=== PATIENT | female | born 1965 | race Caucasian/White ===

== ENCOUNTER 2020-10-12 16:18 | Emergency (ER) | payer OTHER ==
[2020-10-12 16:25] VITALS: BP 140/80; PULSE 90; RESP 18; TEMP 98.1
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
== END 2020-10-12 16:58 | disposition home or self-care (01) ==
LOC: EC 16:18
DX: Z48.02 Encounter for removal of sutures (principal)
CPT/HCPCS: 99282

== ENCOUNTER → 2021-02-03 | Outpatient (CLI) | payer OTHER ==
--- NOTE | 2021-02-03 14:38 | XR ---
EXAMINATION TYPE: XR clavicle LT DATE OF EXAM: 02/03/2021 COMPARISON: NONE HISTORY: Pain TECHNIQUE: 2 views submitted FINDINGS: Postsurgical change involving the left clavicle. Neuropathy of the AC joint. Diffuse osteop enia. IMPRESSION: Postoperative change. Orthopedic plate along the upper margin of the clavicle may extend to the epidermal line are outside the epidermis correlate clinically.
--- NOTE | 2021-02-03 14:39 | XR ---
EXAMINATION TYPE: XR shoulder complete LT DATE OF EXAM: 02/03/2021 COMPARISON: NONE HISTORY: Pain TECHNIQUE: Three views are submitted. FINDINGS: Postsurgical changes involving the clavicle with a metallic plate and several screws. Upper margin of the plate extends along the upper margin of the clavicle may extend to the epidermal line. Correlate clinically. IMPRESSION: 1. Postsurgical change.
== END | disposition home or self-care (01) ==
LOC: RADXRYALE 14:15
PROVIDERS: ATTEND Family Medicine
DX: M25.512 Pain in left shoulder (principal)

== ENCOUNTER → 2021-03-27 | Outpatient (CLI) | payer OTHER ==
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
== END | disposition home or self-care (01) ==
LOC: RADMRIMAIN 11:39
PROVIDERS: ATTEND Orthopaedic Surgery
DX: M75.52 Bursitis of left shoulder (principal); M25.812 Other specified joint disorders, left shoulder; M25.712 Osteophyte, left shoulder; S46.012A Strain of muscle(s) and tendon(s) of the rotator cuff of left shoulder, initial encounter; X58.XXXA Exposure to other specified factors, initial encounter

== ENCOUNTER 2021-05-07 05:46 | Day surgery (SDC) | payer OTHER ==
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
[2021-05-06 09:24] VITALS: BMI 26.6
[2021-05-07] MEDS ORDERED: ONDANSETRON 4 MG/2 ML VIAL IVP ONE (05:48)
[2021-05-07] MEDS ORDERED: HYDROmorphone 0.5 MG/0.5 ML SYRINGE IVP PRN (05:48)
[2021-05-07] MEDS ORDERED: DEXAMETHASONE SOD PHOSPHATE 4 MG/ML 1 ML VIAL IV ONE (05:48)
[2021-05-07] MEDS ORDERED: LACTATED RINGERS 1,000 ML IV SCH (05:48)
[2021-05-07] MEDS ORDERED: MIDAZOLAM 2 MG/2 ML VIAL IV PRN (05:48)
[2021-05-07] MEDS ORDERED: MIDAZOLAM 2 MG/2 ML VIAL IVP ONE (06:52)
[2021-05-07] MEDS ORDERED: fentaNYL (PF) 50 MCG/ML 2 ML AMP IVP ONE (06:52)
[2021-05-07] MEDS ORDERED: SUCCINYLCHOLINE CHLORIDE 100 MG/5 ML SYR IV ONE (06:55)
[2021-05-07] MEDS ORDERED: ROPIVACAINE 5 MG/ML 30 ML VIAL ONE (06:55)
[2021-05-07] MEDS ORDERED: ePHEDrine 50 MG/ML 1 ML VIAL ONE (06:55)
[2021-05-07] MEDS ORDERED: PROPOFOL 10 MG/ML 20 ML VIAL IV ONE (06:55)
[2021-05-07] MEDS ORDERED: fentaNYL (PF) 50 MCG/ML 2 ML AMP ONE (06:55)
[2021-05-07] MEDS ORDERED: LIDOCAINE 1% INJ 10MG/ML (20 ML MDV) ONE (06:55)
[2021-05-07] MEDS ORDERED: EPINEPHrine (PF) 1 ML in SODIUM CHLORIDE 0.9% IRRIGATIO 3,000 ML IRRIGATION ONE ×8 (07:00)
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
[2021-05-07 08:02] VITALS: TEMP 97
[2021-05-07 09:37] VITALS: RESP 16
[2021-05-07 10:58] VITALS: BP 129/78; PULSE 78
--- NOTE | 2021-05-07 11:37 | P.ANPRN ---
Procedure Note - Anesthesia - Nerve Block Performed Left Interscalene Single Time Out Performed: Yes ([id number]) Date of Procedure: 05/07/21 Procedure Start Time: 06:52 Procedure Stop Time: 06:58 Location of Patient: PreOp Indication: Acute Post-Operative Pain, Requested by Surgeon Specifically requested for management of pain by : Nigel Pitt Sedation Type: Sedate with meaningful contact maintained Preparation: Sterile Prep Position: Supine Catheter: None Needle Types: Pajunk Needle Gauge: 21 Ultrasound used to visualize needle placement: Yes Ultrasound used to observe medication spread: Yes Injectate: 0.5% Ropivacaine (see comment for volume) (30cc) Blood Aspirated: No Pain Paresthesia on Injection Noted: No Resistance on Injection: Normal Image Stored and Saved: Yes Events: Uneventful and Well Tolerated
== END 2021-05-07 11:24 | disposition home or self-care (01) ==
LOC: OR 05:46
PROVIDERS: ATTEND Orthopaedic Surgery
DX: M75.42 Impingement syndrome of left shoulder (principal); S46.012A Strain of muscle(s) and tendon(s) of the rotator cuff of left shoulder, initial encounter; V89.2XXA Person injured in unspecified motor-vehicle accident, traffic, initial encounter; M65.9 Synovitis and tenosynovitis, unspecified; Z79.1 Long term (current) use of non-steroidal anti-inflammatories (NSAID); Z98.890 Other specified postprocedural states
CPT/HCPCS: 64415; 81025; 76942; 29822; J2250; J1100; J2405; J0690; J0171; J2001; J3010; J2795; J0330; J2704

== ENCOUNTER → 2022-03-25 | Outpatient (CLI) | payer OTHER ==
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
== END | disposition home or self-care (01) ==
LOC: RADMRIMAIN 14:05
PROVIDERS: ATTEND Orthopaedic Surgery
DX: M47.22 Other spondylosis with radiculopathy, cervical region (principal); M43.12 Spondylolisthesis, cervical region
CPT/HCPCS: 72141

== ENCOUNTER 2022-11-13 16:37 | Emergency (ER) | payer OTHER ==
[2022-11-13 16:43] VITALS: TEMP 98.5
[2022-11-13] MEDS ORDERED: ORPHENADRINE 30 MG/ML 2 ML VIAL IM STA (18:17)
[2022-11-13] MEDS ORDERED: DEXAMETHASONE SOD PHOSPHATE 10 MG/ML 1 ML VIAL IM STA (18:17)
[2022-11-13] MEDS ORDERED: KETOROLAC 15 MG/ML 1 ML VIAL IM STA (18:17)
[2022-11-13] MEDS ORDERED: LIDOCAINE 5% PATCH TOPICAL SCH (18:30)
[2022-11-13] MEDS ORDERED: HYDROmorphone 1 MG/ML 1 ML SYRINGE IM STA (19:35)
[2022-11-13] MEDS ORDERED: ACET/COD 300 MG/30 MG STARTER PACK 6 TAB BTL PO STA (20:18)
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
[2022-11-13 20:38] VITALS: BP 116/73; PULSE 68; RESP 18
== END 2022-11-13 20:38 | disposition home or self-care (01) ==
LOC: EC 16:37
DX: M54.50 Low back pain, unspecified (principal)
CPT/HCPCS: 99283; 96372 ×4; J1100; J2360; J1170; J1885

== ENCOUNTER → 2023-05-03 | Outpatient (CLI) | payer OTHER ==
--- NOTE | 2023-05-04 15:25 | MR ---
EXAMINATION TYPE: MR lumbar spine wo con DATE OF EXAM: 05/03/2023 COMPARISON: None HISTORY: Low back pain that radiates down left leg TECHNIQUE: Multiplanar, multisequence images of the lumbar spine were acquired without IV contrast. L1-L2: Normal disc appearance without desiccation. No herniation, protrusion or disc bulging. No ca nal stenosis is present. Foramina are patent bilaterally. L2-L3: Normal disc appearance without desiccation. No herniation, protrusion or disc bulging. No ca nal stenosis is present. Foramina are patent bilaterally. L3-L4: Normal disc appearance without desiccation. No herniation, protrusion or disc bulging. No ca nal stenosis is present. Foramina are patent bilaterally. L4-L5: Mild decreased signal and loss of height compatible with mild degenerative disc disease. Small right paracentral disc protrusion which mildly effaces the ventral thecal sac. No evidence for centr al stenosis or lateral recess stenosis. Foramina are patent. L5-S1: Normal disc appearance without desiccation. No herniation, protrusion or disc bulging. No ca nal stenosis is present. Foramina are patent bilaterally. Lumbar segments are intact. No paraspinal masses are identified. Conus medullaris has a normal appe arance. Incidental Tarlov cysts noted at S1-S2 measuring 1.4 cm and 1.2 cm respectively. IMPRESSION: 1. Disc desiccation at L4-5 with small right paracentral disc protrusion. 2. Tarlov cysts
== END | disposition home or self-care (01) ==
LOC: RADMRIMAIN 19:02
PROVIDERS: ATTEND Orthopaedic Surgery
DX: M51.26 Other intervertebral disc displacement, lumbar region (principal); M47.26 Other spondylosis with radiculopathy, lumbar region; G96.191 Perineural cyst
CPT/HCPCS: 72148

== ENCOUNTER → 2024-06-05 | Outpatient (CLI) | payer OTHER ==
[2024-06-05 10:12] VITALS: BP 129/85; PULSE 79; RESP 16; TEMP 97.3
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
== END ==
LOC: PNWHC3 09:39
PROVIDERS: ATTEND Specialist
DX: M47.26 Other spondylosis with radiculopathy, lumbar region (principal)
CPT/HCPCS: 99211